=== PATIENT | female | born 1990 | race Caucasian/White ===

== ENCOUNTER 2019-02-20 11:01 | Emergency (ER) | payer MEDICAID ==
[~2019-02-20] VITALS: Ht 165.1 cm; Wt 86.7 kg
[2019-02-20 11:16] VITALS: BP 111/78
[2019-02-20] MEDS ORDERED: PENI500T2 PO (12:13)
== END 2019-02-20 12:26 | disposition home or self-care (01) ==
LOC: ER 11:03
DX: K04.7 Periapical abscess without sinus (principal); F12.90 Cannabis use, unspecified, uncomplicated; Z88.2 Allergy status to sulfonamides; Z91.040 Latex allergy status; Z79.2 Long term (current) use of antibiotics
CPT/HCPCS: 99283

== ENCOUNTER 2020-01-11 08:15 | Emergency (ER) | payer MEDICAID ==
[~2020-01-11] VITALS: Ht 165.1 cm; Wt 75.0 kg
[2020-01-11] MEDS ORDERED: AZIT-63 PO (09:31)
[2020-01-11] MEDS ORDERED: BENZ-16 PO (09:31)
[2020-01-11 09:58] VITALS: BP 128/78
== END 2020-01-11 10:00 | disposition home or self-care (01) ==
LOC: ER 08:15
DX: U07.1 COVID-19 (principal); J20.9 Acute bronchitis, unspecified; R05 Cough; R50.9 Fever, unspecified; Z20.828 Contact with and (suspected) exposure to other viral communicable diseases; F12.90 Cannabis use, unspecified, uncomplicated; Z88.2 Allergy status to sulfonamides; Z91.040 Latex allergy status; Z79.2 Long term (current) use of antibiotics; Z79.899 Other long term (current) drug therapy
CPT/HCPCS: 36415; 71045; 87635; 99284